=== PATIENT | male | born 1960 | race Caucasian/White ===

== ENCOUNTER 2018-09-26 08:35 | Emergency (ER) | payer OTHER ==
[2018-09-26 08:47] VITALS: BP 122/74
[2018-09-26] MEDS ORDERED: TETANUS/DIPHTHERIA/PERTUSSIS 0.5 ML SYRINGE IM ONE (08:53)
--- NOTE | 2018-09-26 08:56 | ED Physician Documentation ---
PD HPI HEAD INJURY - Stated complaint Stated Complaint: FACIAL LAC - Chief complaint Chief Complaint: Laceration - History obtained from History obtained from: Patient - History of Present Illness Mechanism of head injury: Fell Where head injury occurred: Home Timing - onset: How many hours ago (13) Pain level max: 0 Pain level now: 0 Location of injury: Left Associated symptoms: No: LOC, AMS, Amnesia, Nausea / vomiting, Neck pain, Paresthesias, Ear drainage, Nasal drainage Contributing factors: No: Anticoagulated, Intoxicated Similar symptoms before: Has not had sx before Recently seen: Not recently seen - Additional information Additional information: 58-year-old male with history of hypertension, high cholesterol here with co mplaint of accidentally falling over his dog at about 8 PM last night. He stated he had a cut On the left side of his face and was angry so he just went to bed. Denies any loss of consciousness. He denies any symptoms prior to falling. He denies any current headache or dizziness. He stated the right side of his neck muscle just feels a little sore. Denies any paresthesias. Review of Systems Ten Systems: 10 systems reviewed and negative Constitutional: denies: Fever, Myalgias Eyes: denies: Loss of vision, Decreased vision Ears: denies: Ear pain Cardiac: denies: Chest pain / pressure Respiratory: denies: Dyspnea GI: denies: Nausea, Vomiting Skin: reports: Laceration (s) Musculoskeletal: denies: Neck pain, Back pain Neurologic: reports: Head injury. denies: Generalized weakness, Focal weakness, Numbness, Near syncope, Syncope, Confused, Altered mental status, Unresponsive, Headache, LOC PD PAST MEDICAL HISTORY - Past Medical History Cardiovascular: Hypertension, High cholesterol Respiratory: None Endocrine/Autoimmune: None GI: None : None Psych: Depression Musculoskeletal: Osteoarthritis Derm: None - Past Surgical History Past Surgical History: Yes General: Colonoscopy, Other - Present Medications Home Medications: Ambulatory Orders Medication Instructions Recorded Confirmed Ibuprofen [Motrin] 800 mg PO Q8H PRN #30 tablet 09/03/13 09/15/14 RX: Lisinopril 20 mg PO DAILY 09/03/13 09/18/14 RX: Simvastatin 40 mg PO DAILY 09/03/13 09/18/14 - Allergies Allergies/Adverse Reactions: Allergies Allergy/AdvReac Type Severity Reaction Status Date / Time No Known Drug Allergies Allergy Verified 09/15/14 10:54 - Social History Does the pt smoke?: No Smoking Status: Never smoker Does the pt drink ETOH?: Yes Does the pt have substance abuse?: No PD ED PE NORMAL - Vitals Vital signs reviewed: Yes - General General: Alert and oriented X 3, No acute distress, Well developed/nourished - HEENT HEENT: PERRL, EOMI, Ears normal, Moist mucous membranes, Pharynx benign, Other (Left samaritan with a L shaped laceration about 2 inches and the middle aspect with skin avulsion. Nontender and no bony tenderness.) - Neck Neck: Supple, no meningeal sign, No bony TTP - Cardiac Cardiac: RRR, No murmur - Respiratory Respiratory: Clear bilaterally - Abdomen Abdomen: Normal bowel sounds, Soft, Non tender, Non distended - Derm Derm: Warm and dry - Extremities Extremities: No deformity, No tenderness to palpate, Normal ROM s pain - Neuro Neuro: Alert and oriented X 3, adolescent psychiatrist 2-12 intact, No motor deficit, No sensory deficit, Normal speech - Psych Psych: Normal mood, Normal affect Results - Vitals Vitals: Vital Signs - 24 hr 09/26/18 08:42 Temperature 36.0 C L Heart Rate 84 Respiratory 16 Rate Blood Pressure 122/74 O2 Saturation 100 Oxygen O2 Source Room air Procedures - Laceration (location) Face Length in cm: 4 (Curve almost L-shaped) Wound type: Curved, Flap, Superficial, Clean Neurovascular status: Sensory intact, Motor intact, Vascular intact Tendon involvement: Tendon intact Wound Preparation: Irrigated copiously NS, Wound edges modified ( skin flap cut off. This is located at the middle aspect of the laceration. Denuded skin triangle shape less than 1 cm) Skin layer closure: Steri strips (Applied at the ends and midcorner of the curve laceration.) Other: Patient tolerated well, No complications, Neurovascular intact, Dressing applied ([place] denuded skin after skin flap was cut off a Xeroform was applied. Telfa or nonstick dressing was applied over this), Tetanus booster given Complexity: Simple PD MEDICAL DECISION MAKING - ED course Complexity details: re-evaluated patient, considered differential (Facial laceration, contusion, head injury), d/w patient ED course: 06 27 patient in no acute distress and nontoxic-appearing. Explained laceration repair procedure the patient. Patient understood that suturing of the laceration is not appropriate due to delayed presentation here in the ER and with superficial wound and flap Application of Steri-Strips is appropr iate.Patient agreed Departure - Departure Disposition: 01 Home, Self Care Clinical Impression: Laceration Condition: Stable Instructions: ED Laceration All Comments: For todayKeep the dressing intact. Tomorrow you will start doing daily dressing changes.Keep the Steri-Strip dry and intact. They will come off by itself. Do not use any lotion, soap or water on it. Every day change the dressing on your wound. So in the morning you can apply bacitracin and then cover with nonstick dressing. At nighttime remove the dressing and pat dry the area and keep it open to air. Do this for 7 days. Monitor for any signs of infection. If worse return to the emergency room. Discharge Date/Time: 09/26/18 10:19
== END 2018-09-26 10:19 | disposition home or self-care (01) ==
LOC: ED 08:35
DX: S01.81XA Laceration without foreign body of other part of head, initial encounter (principal); W01.0XXA Fall on same level from slipping, tripping and stumbling without subsequent striking against object, initial encounter; Y92.009 Unspecified place in unspecified non-institutional (private) residence as the place of occurrence of the external cause; I10 Essential (primary) hypertension; E78.00 Pure hypercholesterolemia, unspecified; Z23 Encounter for immunization
CPT/HCPCS: 12013; 90471; 99283

== ENCOUNTER 2022-09-18 08:24 | Outpatient (CLI) | payer OTHER ==
[2022-09-18 09:06] LABS: ALBUMIN 4.3 g/dL (3.2-5.5); ALBUMIN/GLOBULIN RATIO 1.3 (1.0-2.2); ALKALINE PHOSPHATASE 53 IU/L (42-121); ALT ALANINE AMINOTRANSFERASE 16 IU/L (10-60); AST ASPARTATE AMINOTRANSFERASE 17 IU/L (10-42); BILIRUBIN,TOTAL 1.4 mg/dL (0.2-1.0); BUN - BLOOD UREA NITROGEN 12 mg/dL (6-20); CARBON DIOXIDE - CO2 27 mmol/L (21-32); CHLORIDE 98 mmol/L (101-111); CHOL/HDL RATIO 2.9 (<5.0); CHOLESTEROL 189 mg/dL; CREATININE 0.9 mg/dL (0.6-1.2); GFR - MDRD 85 (>89); GLUCOSE 103 mg/dL (70-100); HDL CHOLESTEROL 65 mg/dL; LDL CHOLESTEROL,CALCULATED 114 mg/dL; LDL/HDL RATIO 1.8 (<3.6); POTASSIUM 4.1 mmol/L (3.5-5.0); SODIUM 135 mmol/L (135-145); TOTAL PROTEIN 7.6 g/dL (6.7-8.2); TRIGLYCERIDES 48 mg/dL; VLDL CHOLESTEROL 10 mg/dL
== END 2022-09-18 08:25 | disposition home or self-care (01) ==
LOC: LAB 08:24
PROVIDERS: ATTEND Registered Nurse
DX: E78.5 Hyperlipidemia, unspecified (principal)
CPT/HCPCS: 36415; 80053; 80061; 83721